=== PATIENT | female | born 1995 | race Caucasian/White ===

== ENCOUNTER 2016-08-31 18:28 | Emergency (ER) | payer OTHER ==
[~2016-08-31] VITALS: Ht 157.5 cm; Wt 54.5 kg
[2016-08-31 19:10] LABS: HEMATOCRIT 34.4 % (36-46); HEMOGLOBIN 10.3 g/dL (12.0-16.0); MEAN CORPUSCULAR HEMOGLOBIN 18.1 pg (26.0-34.0); MEAN CORPUSCULAR VOLUME 60 fL (80-100); PLATELET COUNT (AUTO) 275 K/uL (150-450); RED BLOOD CELL COUNT(AUTO) 5.71 MIL/uL (4.00-5.20); RED CELL DISTRIBUTION WIDTH 19.3 % (11.5-14.5); WHITE BLOOD COUNT (AUTO) 14.1 K/uL (4.5-11.0)
[2016-08-31 19:22] LABS: ANION GAP 12 mmol/L (8-16); CALCIUM, TOTAL 8.8 mg/dL (8.8-10.5); CARBON DIOXIDE 24 mmol/L (22-29); CHLORIDE 102 mmol/L (98-107); CREATININE 0.73 mg/dL (0.60-1.30); GLOMERULAR FILTR. RATE CALC > 60 mL/min (>60); POTASSIUM 3.9 mmol/L (3.5-5.1); SODIUM SERUM 138 mmol/L (136-145); UREA NITROGEN, BLOOD 12 mg/dL (7-18)
[2016-08-31 19:29] LABS: ALANINE AMINOTRANSFERASE 17 U/L (12-78); ALBUMIN 4.4 g/dL (3.4-5.0); ASPARTATE AMINOTRANSFERASE < 5 U/L (15-37); BILIRUBIN,TOTAL 0.5 mg/dL (0.1-1.0); TOTAL PROTEIN, SERUM 8.3 g/dL (6.4-8.2)
[2016-08-31] MEDS ORDERED: SODIUM CHLORIDE 0.9% 1,000 ML IV ONE (19:30)
[2016-08-31] MEDS ORDERED: ONDANSETRON HCL 4 MG/2 ML VIAL IVP ONE (19:30)
[2016-08-31 19:32] LABS: APPEARANCE,URINE CLOUDY (CLEAR); GLUCOSE, URINE (UA) NEGATIVE (NEGATIVE); KETONES,URINE 15 mg/dL (NEGATIVE); LEUKOCYTE ESTERASE ,URINE SMALL (NEGATIVE); OCCULT BLOOD,URINE NEGATIVE (NEGATIVE); PH,URINE 6.5 (5.0-8.0); PROTEIN,URINE TRACE (NEGATIVE)
[2016-08-31 19:33] LABS: ADD UA MICROSCOPIC YES
[2016-08-31 19:39] LABS: RBC,URINE None Seen /HPF (0-2); SQUAMOUS EPITHELIAL CELL,UR Few /LPF (None Seen)
[2016-08-31 20:11] LABS: BAND NEUTROPHILS % (MANUAL) 5 % (1-5); LYMPHOCYTES % (MANUAL) 5 % (22-44); TOTAL CELLS COUNTED 100
[2016-08-31 20:12] LABS: RBC MORPHOLOGY COMMENT ABNORMAL R
[2016-08-31] MEDS ORDERED: MORPHINE SULFATE 4 MG/ML SYRINGE IVP ONE (20:15)
[2016-08-31] MEDS ORDERED: BARIUM SULFATE 0.1% SUSPENSION 450 ML BOTTLE PO ONE (20:45)
[2016-08-31] MEDS ORDERED: IOVERSOL 320 MG/ML 100 ML VIAL ONE (20:52)
[2016-08-31] MEDS ORDERED: BARIUM SULFATE 0.1% SUSPENSION 450 ML BOTTLE ONE (20:52)
[2016-08-31] MEDS ORDERED: SODIUM CHLORIDE 0.9% 500 ML IV ONE (23:30)
[2016-08-31 23:50] VITALS: BP 115/62
== END 2016-09-01 00:09 | disposition home or self-care (01) ==
LOC: EMS 18:29
DX: K52.9 Noninfective gastroenteritis and colitis, unspecified (principal)
CPT/HCPCS: 36415; 74177; 80053; 81001; 83690; 84703; 85025; 96361; 96374; 96375; 99285; J2270; J2405; J7030; Q9967; Z7610

== ENCOUNTER 2017-12-25 12:16 | Emergency (ER) | payer OTHER ==
[~2017-12-25] VITALS: Ht 157.5 cm; Wt 50.0 kg
[2017-12-25] MEDS ORDERED: IBUPROFEN 400 MG TABLET PO ONE (13:00)
[2017-12-25] MEDS ORDERED: LIDOCAINE HCL 2% VISCOUS 15 ML SOLUTION UDCUP PO ONE (13:00)
[2017-12-25 13:19] VITALS: BP 132/62
== END 2017-12-25 13:39 | disposition home or self-care (01) ==
LOC: EMS 12:17
DX: M79.1 Myalgia (principal); R51 Headache; M25.511 Pain in right shoulder; M25.571 Pain in right ankle and joints of right foot; M25.531 Pain in right wrist; R07.81 Pleurodynia; V49.9XXA Car occupant (driver) (passenger) injured in unspecified traffic accident, initial encounter; Y93.89 Activity, other specified; Y92.89 Other specified places as the place of occurrence of the external cause; Y99.8 Other external cause status
CPT/HCPCS: 99283

== ENCOUNTER 2018-07-11 04:00 | Emergency (ER) | payer OTHER ==
[~2018-07-11] VITALS: Ht 157.5 cm; Wt 52.7 kg
[2018-07-11] MEDS ORDERED: ONDANSETRON HCL 4 MG TABLET PO ONE (05:00)
[2018-07-11 05:19] LABS: BASOPHILS % (AUTO) 0.5 % (0.0-2.0); EOSINOPHILS % (AUTO) 1.8 % (1.0-6.0); HEMATOCRIT 33.4 % (36-46); HEMOGLOBIN 10.4 g/dL (12.0-16.0); LYMPHOCYTES # (AUTO) 2.3 K/uL (1.0-4.8); LYMPHOCYTES % (AUTO) 32.1 % (22.0-44.0); MEAN CORPUSCULAR HEMOGLOBIN 19.9 pg (26.0-34.0); MEAN CORPUSCULAR VOLUME 64 fL (80-100); MONOCYTES # (AUTO) 0.4 K/uL (0.1-1.0); MONOCYTES % (AUTO) 4.9 % (2.0-9.0); NEUTROPHILS # (AUTO) 4.4 K/uL (1.8-7.7); NEUTROPHILS % (AUTO) 60.7 % (40.0-70.0); PLATELET COUNT (AUTO) 168 K/uL (150-450); RED BLOOD CELL COUNT(AUTO) 5.21 MIL/uL (4.00-5.20); RED CELL DISTRIBUTION WIDTH 19.9 % (11.5-14.5)
[2018-07-11 05:33] LABS: ANION GAP 9 mmol/L (8-16); CALCIUM, TOTAL 8.7 mg/dL (8.8-10.5); CARBON DIOXIDE 25 mmol/L (22-29); CHLORIDE 103 mmol/L (98-107); CREATININE 0.68 mg/dL (0.60-1.30); GLOMERULAR FILTR. RATE CALC > 60 mL/min (>60); GLUCOSE,RANDOM 96 mg/dL (70-110); POTASSIUM 3.7 mmol/L (3.5-5.1); SODIUM SERUM 137 mmol/L (136-145); UREA NITROGEN, BLOOD 10 mg/dL (7-18)
[2018-07-11 05:38] LABS: ALANINE AMINOTRANSFERASE 17 U/L (12-78); ALBUMIN 4.1 g/dL (3.4-5.0); ALKALINE PHOSPHATASE 53 U/L (46-116); ASPARTATE AMINOTRANSFERASE 14 U/L (15-37); BILIRUBIN,TOTAL 0.3 mg/dL (0.1-1.0); TOTAL PROTEIN, SERUM 7.3 g/dL (6.4-8.2)
[2018-07-11 07:04] LABS: HCG,QUANTITATIVE 1 mIU/mL (0-6)
[2018-07-11 07:33] LABS: INFLUENZA TYPE A NEGATIVE FOR TYPE A (NEGATIVE); INFLUENZA TYPE B NEGATIVE FOR TYPE B (NEGATIVE)
[2018-07-11 08:41] VITALS: BP 113/70
== END 2018-07-11 09:11 | disposition home or self-care (01) ==
LOC: EMS 04:00
DX: R11.2 Nausea with vomiting, unspecified (principal); R10.9 Unspecified abdominal pain; R05 Cough; F41.9 Anxiety disorder, unspecified
CPT/HCPCS: 36415; 80053; 84702; 85025; 87804; 99283; Q0162

== ENCOUNTER 2019-09-30 14:59 | Emergency (ER) | payer MEDICAID, OTHER ==
[~2019-09-30] VITALS: Ht 157.5 cm; Wt 60.0 kg
[2019-09-30] MEDS ORDERED: FERR-82 PO (15:06)
[2019-09-30 17:12] LABS: BASOPHILS % (AUTO) 1.4 % (0.0-2.0); HEMATOCRIT 34.5 % (36-46); HEMOGLOBIN 10.3 g/dL (12.0-16.0); LYMPHOCYTES # (AUTO) 2.6 K/uL (1.0-4.8); LYMPHOCYTES % (AUTO) 39.3 % (22.0-44.0); MEAN CORPUSCULAR HGB CONC 29.9 G/dL (31.0-37.0); MEAN CORPUSCULAR VOLUME 64 fL (80-100); MONOCYTES # (AUTO) 0.4 K/uL (0.1-1.0); MONOCYTES % (AUTO) 5.5 % (2.0-9.0); NEUTROPHILS # (AUTO) 3.5 K/uL (1.8-7.7); NEUTROPHILS % (AUTO) 52.8 % (40.0-70.0); PLATELET COUNT (AUTO) 240 K/uL (150-450); RED BLOOD CELL COUNT(AUTO) 5.43 MIL/uL (4.00-5.20); RED CELL DISTRIBUTION WIDTH 18.4 % (11.5-14.5)
[2019-09-30 17:15] LABS: ANION GAP 12 mmol/L (8-16); CALCIUM, TOTAL 9.1 mg/dL (8.8-10.5); CARBON DIOXIDE 26 mmol/L (22-29); CHLORIDE 102 mmol/L (98-107); CREATININE 0.75 mg/dL (0.60-1.30); GLOMERULAR FILTR. RATE CALC > 60 mL/min (>60); GLUCOSE,RANDOM 120 mg/dL (70-110); POTASSIUM 3.2 mmol/L (3.5-5.1); SODIUM SERUM 140 mmol/L (136-145); UREA NITROGEN, BLOOD 10 mg/dL (7-18)
[2019-09-30 17:22] LABS: APPEARANCE,URINE CLOUDY (CLEAR); BILIRUBIN,URINE NEGATIVE (NEGATIVE); GLUCOSE, URINE (UA) NEGATIVE (NEGATIVE); KETONES,URINE NEGATIVE (NEGATIVE); LEUKOCYTE ESTERASE ,URINE SMALL (NEGATIVE); NITRATE,URINE NEGATIVE (NEGATIVE); OCCULT BLOOD,URINE NEGATIVE (NEGATIVE); PROTEIN,URINE NEGATIVE (NEGATIVE); UROBILINOGEN,URINE 0.2 mg/dL (<=1.0)
[2019-09-30 17:28] LABS: ALANINE AMINOTRANSFERASE 14 U/L (12-78); ALBUMIN 4.5 g/dL (3.4-5.0); ALKALINE PHOSPHATASE 53 U/L (46-116); ASPARTATE AMINOTRANSFERASE 11 U/L (15-37); BILIRUBIN,TOTAL 0.2 mg/dL (0.1-1.0); HCG,QUANTITATIVE < 1 mIU/mL (0-6); LIPASE 173 U/L (73-393)
[2019-09-30 17:31] LABS: RBC,URINE None Seen /HPF (0-2); SQUAMOUS EPITHELIAL CELL,UR Many /LPF (None Seen)
[2019-09-30 17:32] LABS: BACTERIA,URINE Moderate /HPF (None Seen)
[2019-09-30 17:35] LABS: INFLUENZA TYPE A NEGATIVE FOR TYPE A (NEGATIVE); INFLUENZA TYPE B NEGATIVE FOR TYPE B (NEGATIVE)
[2019-09-30] MEDS ORDERED: POTASSIUM CHLORIDE 20 MEQ ER TABLET PO ONE (18:45)
[2019-09-30] MEDS ORDERED: ACETAMINOPHEN 500 MG TABLET PO ONE (18:45)
[2019-09-30 19:16] VITALS: BP 120/72
== END 2019-09-30 19:30 | disposition home or self-care (01) ==
LOC: EMS 14:59
DX: J11.1 Influenza due to unidentified influenza virus with other respiratory manifestations (principal); R19.7 Diarrhea, unspecified; R11.2 Nausea with vomiting, unspecified; R51 Headache; F17.210 Nicotine dependence, cigarettes, uncomplicated; F12.90 Cannabis use, unspecified, uncomplicated; Z03.818 Encounter for observation for suspected exposure to other biological agents ruled out
CPT/HCPCS: 87086; 87635; 87804

== ENCOUNTER 2023-05-01 16:01 | Emergency (ER) | payer MEDICAID, OTHER ==
[~2023-05-01] VITALS: Ht 157.5 cm; Wt 56.8 kg
[~2023-05-01 16:01] MED LIST: FERR-82 PO
[2023-05-01 16:10] VITALS: TEMP 98.4
[2023-05-01 16:12] LABS: COVID AG,FIA SOURCE NASAL SWAB
[2023-05-01 16:37] LABS: INFLUENZA TYPE A NEGATIVE FOR TYPE A (NEGATIVE); INFLUENZA TYPE B NEGATIVE FOR TYPE B (NEGATIVE); SARS-COV2 (COVID) ANTIGEN,FIA Negative (Negative)
[2023-05-01] MEDS ORDERED: ACETAMINOPHEN 325 MG TABLET PO ONE (17:00)
[2023-05-01] MEDS ORDERED: ALBUTEROL SULFATE HFA 90 MCG/PUFF 8 GM INHALER IH ONE (17:00)
[2023-05-01] MEDS ORDERED: ACET-3385 PO (18:03)
[2023-05-01] MEDS ORDERED: IBUP-1492 PO (18:03)
[2023-05-01 18:18] VITALS: BP 110/60; PULSE 88; RESP 16
== END 2023-05-01 18:19 | disposition home or self-care (01) ==
LOC: EMS 16:03
DX: B34.9 Viral infection, unspecified (principal); F17.210 Nicotine dependence, cigarettes, uncomplicated; F12.90 Cannabis use, unspecified, uncomplicated; Z20.822 Contact with and (suspected) exposure to COVID-19
CPT/HCPCS: 99284; 71045; 87426; 87804; 94640; J3535

== ENCOUNTER 2023-11-03 15:52 | Emergency (ER) | payer OTHER ==
[~2023-11-03] VITALS: Ht 160 cm; Wt 56.8 kg
[~2023-11-03 15:52] MED LIST changes: +ACET-3385 PO; -FERR-82 PO; +IBUP-1492 PO
[2023-11-03 15:54] VITALS: TEMP 98.2
[2023-11-03 16:17] LABS: COVID AG,FIA SOURCE NASAL SWAB
[2023-11-03 16:34] LABS: SARS-COV2 (COVID) ANTIGEN,FIA Negative (Negative)
[2023-11-03 16:35] LABS: INFLUENZA TYPE A NEGATIVE FOR TYPE A (NEGATIVE); INFLUENZA TYPE B NEGATIVE FOR TYPE B (NEGATIVE)
[2023-11-03 16:51] LABS: BASOPHILS % (AUTO) 0.3 % (0.0-2.0); EOSINOPHILS % (AUTO) 0.4 % (1.0-6.0); HEMATOCRIT 29.5 % (36-46); HEMOGLOBIN 8.5 g/dL (12.0-16.0); LYMPHOCYTES # (AUTO) 0.7 K/uL (1.0-4.8); LYMPHOCYTES % (AUTO) 5.7 % (22.0-44.0); MEAN CORPUSCULAR HEMOGLOBIN 15.6 pg (26.0-34.0); MEAN CORPUSCULAR HGB CONC 28.7 G/dL (31.0-37.0); MEAN CORPUSCULAR VOLUME 54 fL (80-100); MONOCYTES # (AUTO) 0.3 K/uL (0.1-1.0); MONOCYTES % (AUTO) 2.5 % (2.0-9.0); NEUTROPHILS # (AUTO) 11.3 K/uL (1.8-7.7); PLATELET COUNT (AUTO) 281 K/uL (150-450); RED BLOOD CELL COUNT(AUTO) 5.44 MIL/uL (4.00-5.20); RED CELL DISTRIBUTION WIDTH 20.7 % (11.5-14.5); WHITE BLOOD COUNT (AUTO) 12.3 K/uL (4.5-11.0)
[2023-11-03] MEDS: SODIUM CHLORIDE 0.9% 1,000 ML IV ONE (16:52)
[2023-11-03] MEDS: KETOROLAC TROMETHAMINE 30 MG/ML VIAL IVP ONE (16:52)
[2023-11-03 16:53] LABS: NEUTROPHILS % (AUTO) 91.1 % (40.0-70.0)
[2023-11-03] MEDS: ONDANSETRON HCL 4 MG/2 ML VIAL IVP ONE (16:53)
[2023-11-03 17:22] LABS: RBC MORPHOLOGY COMMENT ABNORMAL RBC MORPH
[2023-11-03 17:23] LABS: APPEARANCE,URINE HAZY (CLEAR); BILIRUBIN,URINE NEGATIVE (NEGATIVE); COLOR,URINE YELLOW (YELLOW); GLUCOSE, URINE (UA) NEGATIVE (NEGATIVE); KETONES,URINE 80-100 mg/dL (NEGATIVE); LEUKOCYTE ESTERASE ,URINE TRACE (NEGATIVE); NITRATE,URINE NEGATIVE (NEGATIVE); OCCULT BLOOD,URINE NEGATIVE (NEGATIVE); PH,URINE 7.5 (5.0-8.0); PROTEIN,URINE 30-70 mg/dL (NEGATIVE); SPECIFIC GRAVITIY, URINE 1.034 (1.003-1.030)
[2023-11-03 17:45] LABS: ANION GAP 16 mmol/L (8-16); CALCIUM, TOTAL 9.5 mg/dL (8.8-10.5); CARBON DIOXIDE 21 mmol/L (22-29); CHLORIDE 102 mmol/L (98-107); CREATININE 0.86 mg/dL (0.60-1.30); GLOMERULAR FILTR. RATE CALC > 60 mL/min (>60); GLUCOSE,RANDOM 111 mg/dL (70-110); POTASSIUM 3.7 mmol/L (3.5-5.1); SODIUM SERUM 139 mmol/L (136-145); UREA NITROGEN, BLOOD 15 mg/dL (7-18)
[2023-11-03 17:51] LABS: ALANINE AMINOTRANSFERASE 13 U/L (12-78); ALBUMIN 4.6 g/dL (3.4-5.0); ALKALINE PHOSPHATASE 65 U/L (46-116); ASPARTATE AMINOTRANSFERASE 12 U/L (15-37); BILIRUBIN,TOTAL 0.8 mg/dL (0.1-1.0); LIPASE 30 U/L (16-77); TOTAL PROTEIN, SERUM 8.6 g/dL (6.4-8.2)
[2023-11-03 17:53] LABS: SQUAMOUS EPITHELIAL CELL,UR Many /LPF (None Seen)
[2023-11-03 17:54] LABS: RBC,URINE None Seen /HPF (0-2)
[2023-11-03 17:55] LABS: BACTERIA,URINE Few /HPF (None Seen)
[2023-11-03] MEDS ORDERED: ONDA-104 PO (18:49)
[2023-11-03 18:50] VITALS: BP 105/71; PULSE 86; RESP 14
== END 2023-11-03 19:10 | disposition home or self-care (01) ==
LOC: EMS 15:52
DX: R11.2 Nausea with vomiting, unspecified (principal); K52.9 Noninfective gastroenteritis and colitis, unspecified; D64.9 Anemia, unspecified; F17.210 Nicotine dependence, cigarettes, uncomplicated; F12.90 Cannabis use, unspecified, uncomplicated; Z20.822 Contact with and (suspected) exposure to COVID-19
CPT/HCPCS: 99285; 96374; 76700; 96361; 96375; 87426; 80053; 81001; 83690; 84703; 85025; 87804; 36415; J1885; J2405; J7030